=== PATIENT | female | born 1970 | race Caucasian/White ===

== ENCOUNTER 2022-11-26 09:00 | Outpatient (RCR) | payer OTHER, SELFPAY | END 2023-03-26 23:59 | disposition home or self-care (01) | PROVIDERS: PCP Family Medicine; Visit Provider Family Medicine | DX: M75.101 Unspecified rotator cuff tear or rupture of right shoulder, not specified as traumatic (principal); M19.011 Primary osteoarthritis, right shoulder; M75.41 Impingement syndrome of right shoulder; M25.511 Pain in right shoulder; M25.611 Stiffness of right shoulder, not elsewhere classified; R53.1 Weakness; Z51.89 Encounter for other specified aftercare | CPT/HCPCS: 97032; 97035; 97110; 97140; 97161; 97164 ==

== ENCOUNTER 2023-01-17 07:36 | Day surgery (SDC) | payer OTHER, SELFPAY ==
[2023-01-17] VITALS (27 sets, daily range): BP systolic 114–145; BP diastolic 66–96; PULSE 60–75; RESP 12–18; TEMP 36.1–36.7; O2SAT 92–100; BMI 27.8
[2023-01-17] MEDS: LACTATED RINGERS 1000 ML 1,000 ML 100 ML IV (07:55)
[2023-01-17 08:09] LABS: Ur HCG Qualitative* Negative (Negative)
--- NOTE | 2023-01-17 08:20 | W.PM.H&PU ---
History & Physical Update History & Physical Update H&P Reviewed and patient assessed: No changes noted
[2023-01-17] MEDS: SODIUM CHLORIDE 0.9 % (FLUSH) 10 ML SYRINGE IVF (08:44)
[2023-01-17] MEDS: fentaNYL 100 MCG/2 ML inj IVP (08:55)
[2023-01-17] MEDS: MIDAZOLAM HCL 1 MG/ML inj IVP (08:55)
--- NOTE | 2023-01-17 09:12 | SUR.PREOP ---
TIME?OUT:?0854 PT/RN/MDA?VERIFICATION?OF?SURGICAL?SITE,?PROCEDURE,?AND?CONSENT OBTAINED?PRIOR?TO?INVASIVE?PROCEDURE.
--- NOTE | 2023-01-17 09:29 | W.PM.NB ---
Nerve Block Nerve Block Time Seen by Provider: 08:55 Date Seen: 01/17/23 Type of block requested by surgeon for post-operative analgesia: interscalene Side: right Time out performed: Yes Verification of patient name: Yes Verification of date of : Yes Site marking: site marked Name of person performing procedure: Osman Isabela Continuous monitoring Was continuous monitoring of O2 sat, B/P, ditch inspector, recorded every 15 minutes?: Yes Procedure Checklist: sterile prep, needles and gloves Ultrasound guided. Images saved: Yes Medications given in 5ml increments after negative aspiration: Ropivicaine %: 0.5 mL: 25 Needle gauge: 21 Decadron (mg): 10 Precedex (mcg): 25 Patient tolerated procedure well: Yes Additional comments: Injected in 5mL increments after negative aspiration Block Charges Block Charge (with Pro Fee): Brachial Plexus Use of Ultrasound Machine for Block: Yes- US Guidance/pain block
[2023-01-17] MEDS: CEFAZOLIN 2 GM in 0.9 % SODIUM CHLORIDE Mini-bag 100 ML IVPB (09:36)
[2023-01-17] MEDS: EPINEPHrine 1 MG in SODIUM CHLORIDE IRRIG SOLUTION 3,000 ML 9003 MG IRRIGATION ×3 (09:57→10:33)
[2023-01-17] MEDS: EPINEPHrine 1 MG in SODIUM CHLORIDE IRRIG SOLUTION 3,000 ML 2000 MG IRRIGATION (10:50)
--- NOTE | 2023-01-17 10:51 | P.ORPRC_ITS ---
Procedure Note Date of procedure: 01/17/23 Procedure: PREOPERATIVE DIAGNOSES: 1. Right shoulder rotator cuff [id number] partial-thickness supraspinatus 2. Right shoulder AC joint arthrosis, primary, moderate-severe 2. Right shoulder subacromial impingement syndrome. POSTOPERATIVE DIAGNOSES: 1. Right shoulder rotator cuff tpsn-bdsm-krpua partial-thickness supraspinatus 2. Right shoulder AC joint arthrosis, primary, moderate-severe 2. Right shoulder subacromial impingement syndrome. NAME OF OPERATION: 1. Right shoulder arthroscopic rotator cuff bbnymf-nbhw-fznxj partial-thickness supraspinatus 2. Right shoulder arthroscopic distal clavicle excision 3. Right shoulder arthroscopic bursectomy, subacromial decompression/partial acromioplasty. SURGEON: Andrez Mejia MD HORSE RACING ANALYST: Jose Baptiste. Of note, a skilled assistant golf course superintendent was critical for this case to aide in patient positioning, suture manipulation, arm positioning, instrument positioning, and closure. ANESTHESIA: General plus preoperative supraclavicular block. EBL: 25 mL IMPLANTS: Arthrex 5.5 mm BioComposite SwiveLock suture anchor (x1); Arthrex 2.6 mm knotless FiberTak RC (x1) COMPLICATIONS: None evident INDICATIONS: The patient is a pleasant, 52-year-old female who has experienced right shoulder pain that has been increasing in recent time. Physical exam and imaging were consistent with a rotator cuff tear. Given their findings, as well as the weakness and pain, and inadequate response to nonoperative management, recommendation was made for surgery. FINDINGS: Exam under anesthesia revealed stable shoulder with excellent range of motion. The diagnostic arthroscopy revealed healthy chondral surfaces of the glenohumeral joint. The Subscapularis tendon was intact and with a healthy attachment. The long head of the biceps tendon was intact. The superior rotator cuff tendon was found to be torn and high-grade partial-thickness manner on the articular side. A blunt probe easily penetrated through this from the bursal side. The labrum was relatively healthy without significant tearing. No loose bodies were identified within the pouch or subscapularis recess. PROCEDURE: Following a thorough discussion of risks, benefits, and alternatives, consent was obtained and the right shoulder was marked. The patient was brought to the operating room and placed supine on the operating table. Induction of anesthesia was completed after preoperative supraclavicular block was administered in preop holding. Appropriate time out was performed identifying proper patient, site, and procedure. 2 g IV Ancef was administered within 1 hour of incision preoperatively. The right upper extremity was prepped and draped in the appropriate sterile fashion using ChloraPrep prep. This was after the patient was positioned in the beach chair with their head in neutral alignment and all bony prominences well padded. The shoulder was insufflated with 20mL of normal saline via an 18g spinal needle from a posterior approach. An 11 blade skin incision allowed a blunt trochar to be inserted and diagnostic arthroscopy to be performed with the findings as noted above. An anterior portal was established with an outside in technique. This allowed the probe to be inserted and confirm the diagnostic arthroscopic findings. The shaver was then inserted and allowed debridement of the deep surface of the supraspinatus. Following this, the upper border subscapularis was probed and found to be stable. Thereafter, the subacromial space was entered. Here, a complete bursectomy and partial acromioplasty/subacromial decompression was performed with a combination of radiofrequency ablator, the shaver, and a 5.5 mm bur. Additionally, distal clavicle excision was performed with the bur. 8 mm of distal clavicle was resected based on the with of our bur. Further inspection of the supraspinatus and infraspinatus rotator cuff was performed. This identified the tear as noted above. The margins of the tear were debrided, and the greater tuberosity was debrided with a combination of the apollo cautery, shaver, and bur on reverse setting. [After gentle decortication, a 2.6 mm FiberTak RC was placed for medial row anchor. After it was set, the sutures were passed with 4 tails passed independently. These were brought to a single lateral row 5.5 mm anchor. Excellent rotator cuff reapproximation to the greater tuberosity was achieved and visualized on both the articular side and bursal side. Prior to anchor route driver salesperson removal, the eyelet sutures were tugged on for each anchor and found that the anchor had excellent stability within the bone. The shoulder was placed through range of motion and found to be stable. The rotator cuff was re-probed and found to be stable. Instruments were removed. Excess fluid was drained, closure performed with 4-0 Monocryl and Steri-Strips. Dressings were applied. Sling was applied. The patient was awoken from anesthesia and transferred to the PACU in stable condition. A skilled assistant golf course superintendent was critical for this case to aid in patient positioning, limb positioning, skill to manipulate arthroscopic instruments and camera, suture management, patient safety, and closure. PLAN: 1. Elbow, forearm, wrist and digit range of motion as tolerated. 2. Encouraged ice. 3. Tramadol for pain as needed. 4. Sling at all times except for ROM and showering. 5. Follow up with PA visit in 1-2 weeks for wound check. Initiate physical therapy following that visit for passive range of motion. Initiate active assisted range of motion at 4-5 weeks. May do pendulums now.
--- NOTE | 2023-01-17 11:24 | W.ANESCHARGE ---
Anesthesia Charges Start Date/Time Anesthesia Start Date: 01/17/23 Anesthesia Start Time: 09:22 Stop Date/Time Anesthesia Stop Date: 01/17/23 Anesthesia Stop Time: 11:24
[2023-01-17] MEDS: HYDROmorphone 0.5 mg/0.5 ml inj IVP (11:49)
[2023-01-17] MEDS: fentaNYL 100 MCG/2 ML inj 50 MCG IVP (11:49)
[2023-01-17] MEDS: TRAMADOL HCL 50 MG TABLET PO (13:49)
--- NOTE | 2023-01-17 14:20 | SUR.PHASEII ---
Upon reassessment, pt complains of severe 9/10 anterior shoulder pain/ burning sensation and tenderness. Anesthesia notified. Plan to re administer nerve block. Pt agreeable to plan. TIME?OUT:1419 PT/RN/FELIZ?VERIFICATION?OF?SURGICAL?SITE,?PROCEDURE,?AND?CONSENT OBTAINED?PRIOR?TO?INVASIVE?PROCEDURE.
--- NOTE | 2023-01-17 14:51 | P.NB_ITS ---
Nerve Block Nerve Block Time Seen by Provider: 14:54 Date Seen: 01/17/23 Type of block requested by surgeon for post-operative analgesia: supraclavicular Side: right Time out performed: Yes Verification of patient name: Yes Verification of date of : Yes Site marking: site marked Name of person performing procedure: FARA Pham Continuous monitoring Was continuous monitoring of O2 sat, B/P, air sampling and monitoring, recorded every 15 minutes?: Yes Procedure Checklist: sterile prep, needles and gloves Ultrasound guided. Images saved: Yes Medications given in 5ml increments after negative aspiration: Ropivicaine %: 0.5 mL: 12 Needle gauge: 20 Patient tolerated procedure well: Yes Block Charges Block Charge (with Pro Fee): Brachial Plexus Use of Ultrasound Machine for Block: Yes- US Guidance/pain block
== END 2023-01-17 15:13 | disposition home or self-care (01) ==
PROVIDERS: PCP Family Medicine; Visit Provider Orthopaedic Surgery Sports Medicine
PROC: (CPT 29805; principal; 2023-01-17 09:00)
DX: M75.101 Unspecified rotator cuff tear or rupture of right shoulder, not specified as traumatic (principal); M19.011 Primary osteoarthritis, right shoulder; M75.41 Impingement syndrome of right shoulder; G89.18 Other acute postprocedural pain
CPT/HCPCS: 29827; 29826; 29824; 01630; 64415; 76942; 81025; A9270; C1713; J0171; J0665; J0690; J1100; J1170; J2250; J2405; J2704; J2795; J3010; J3490; J7120; L3670

== ENCOUNTER 2023-05-12 16:45 | Outpatient (RCR) | payer OTHER, SELFPAY | END 2023-09-09 23:59 | disposition home or self-care (01) | PROVIDERS: PCP Family Medicine; Visit Provider Physician Assistant Surgical | DX: Z98.890 Other specified postprocedural states (principal); Z51.89 Encounter for other specified aftercare | CPT/HCPCS: 97110; 97140; 97161 ==

== ENCOUNTER 2023-11-01 08:30 | Outpatient (RCR) | payer OTHER, SELFPAY | END 2024-02-29 23:59 | disposition home or self-care (01) | PROVIDERS: PCP Family Medicine; Visit Provider Orthopaedic Surgery | DX: M25.561 Pain in right knee (principal); R60.0 Localized edema; Z98.890 Other specified postprocedural states | CPT/HCPCS: 97110; 97112; 97140; 97162; 97165; X5282 ==

== ENCOUNTER 2024-03-26 18:05 | Outpatient (CLI) | payer OTHER, SELFPAY ==
--- NOTE | 2024-03-26 18:15 | MR_ITS ---
[address] [address] Phone:?[phone] Fax:?[phone] Referring Physician Information: Andrez Mejia M.D. [address] [facility] [address] Phone:?[phone] Fax:?[phone] Patient:Jaime Nelson D.O.B:?1970 Sex:?Female Phone:?[phone] [facility] MRN:?[id number] Exam Date:?03/26/2024 EXAM: MRI of the RIGHT KNEE, without contrast CLINICAL INFORMATION: Female, 53 years old, with right knee pain. INDICATION: Evaluate for meniscal tear. PRIOR SURGERY: None reported. PLAIN FILMS: Knee radiographs dated 03/15/2024. COMPARISONS: Right knee MRI dated 07/06/2023. TECHNICAL INFORMATION: Using a 1.5T MR scanner and a localizing surface coil: sagittals: PD, PDFS coronals: PD, T2FS axials: PD, PDFS SEDATION: None CONTRAST: None FINDINGS: Knee joint: Effusion: Small right knee effusion, with evidence of synovitis. Popliteal cyst: Small, unruptured popliteal (Gamble's) cyst. Loose bodies: None. Subcutaneous and extra-articular soft tissues: Unremarkable. Ligaments: ACL: Intact ACL anteromedial and posterolateral bundles, without sprain or tear. PCL: Intact PCL, without acute or chronic injury. MCL: Mild thickening of the proximal 3rd of the superficial MCL, without MCL tear. LCL: Intact LCL, without injury. Posterolateral corner: Mild popliteus tendinopathy, without tear. Biceps femoris, iliotibial band, popliteofibular ligament and lateral gastrocnemius are intact. Posteromedial corner: Mild semimembranosus tendinopathy, without tear. Pes anserine tendons and posterior oblique ligament are without injury, tendinopathy or bursitis. Extensor mechanism: Patellar tendon: Intact, without tendinopathy. Quadriceps tendon: Intact, without tendinopathy. Retinacula: Medial and lateral retinacula are intact. Fat pads: Unremarkable infrapatellar Hoffa's, quadriceps and prefemoral fat pads. Medial compartment: Medial meniscus: Full thickness radial tearing of the posterior horn/root of the medial meniscus measuring 1.2 cm (sagittal PDFS series 6 images 19-22). Meniscal extrusion measures 6 cm. No parameniscal cyst. Medial femoral condyle & tibial plateau: Broad-based grade III chondromalacia throughout the central, weightbearing aspect of the medial compartment, with mild marginal osteophytosis and reactive osseous changes (coronal STIR series 8 image 16 and sagittal PDFS series 6 image 23). Lateral compartment: Lateral meniscus: No articular surface, meniscosynovial junction or root tear. No displacement, extrusion or parameniscal cyst. Lateral femoral condyle: No chondromalacia or osteochondral abnormality. Lateral tibial plateau: No chondromalacia or osteochondral abnormality. Patellofemoral joint: Patella: Broad-based grade II/III chondromalacia of the medial facet and median ridge, with minimal marginal osteophytosis. Trochlea: Broad-based grade II chondromalacia of the medial facet and central sulcus, with minimal marginal osteophytosis. Proximal tibiofibular joint: Unremarkable, without evidence of ligament sprain injury, joint effusion or adjacent marrow edema. Bones: No stress/occult fractures or other marrow edema/pathology. IMPRESSION: 1. Full-thickness radial tear of the posterior horn/root medial meniscus measuring 1.2 cm, with 6 mm of meniscal extrusion. This has slightly progressed since prior study dated 07/06/2023. 2. Mild-moderate osteoarthritis of the medial compartment, which has progressed since prior study. 3. Mild osteoarthritis of the patellofemoral compartment, unchanged. 4. Small knee joint effusion with synovitis and a small, unruptured popliteal (Gamble's) cyst. 5. Mild popliteus and semimembranosus tendinopathy, without tear. 6. No acute cruciate or collateral ligament sprain/tear. 7. No lateral meniscal tear or osteochondral abnormality of the lateral meniscus. BC Electronically signed on 03/27/2024 10:26:00 AM by Arslan Cherry M.D.
== END 2024-03-26 18:06 | disposition home or self-care (01) ==
LOC: MRI 18:06
PROVIDERS: PCP Family Medicine; Visit Provider Orthopaedic Surgery Sports Medicine
DX: M25.561 Pain in right knee (principal); M17.11 Unilateral primary osteoarthritis, right knee; S83.241A Other tear of medial meniscus, current injury, right knee, initial encounter; M25.461 Effusion, right knee; M23.203 Derangement of unspecified medial meniscus due to old tear or injury, right knee
CPT/HCPCS: 73721

== ENCOUNTER 2024-07-18 06:32 | Day surgery (SDC) | payer OTHER, SELFPAY ==
[2024-07-18] VITALS (13 sets, daily range): BP systolic 104–134; BP diastolic 67–89; PULSE 57–81; RESP 13–16; TEMP 36.2–36.6; O2SAT 97–100; BMI 29.9
[2024-07-18] MEDS: LACTATED RINGERS 1000 ML 1,000 ML 100 ML IV (06:35)
[2024-07-18] MEDS: SODIUM CHLORIDE 0.9 % (FLUSH) 10 ML SYRINGE IVF (06:54)
--- NOTE | 2024-07-18 07:14 | W.PM.H&PU ---
History & Physical Update History & Physical Update H&P Reviewed and patient assessed: No changes noted
[2024-07-18] MEDS: CEFAZOLIN 2 GM in 0.9 % SODIUM CHLORIDE Mini-bag 100 ML IVPB (07:51)
--- NOTE | 2024-07-18 09:03 | PM.ORPRC ---
Procedure Note Date of procedure: 07/18/24 Procedure: PREOPERATIVE DIAGNOSIS: 1. Right knee medial meniscus root tear POSTOPERATIVE DIAGNOSIS: 1. Right knee medial meniscus root tear, subacute 2. 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 Right knee arthroscopic partial medial meniscus root repair 2. Right knee microfracture intercondylar notch and grade 4 medial femoral condyle] SURGEON: Andrez Mejia M.D. FRONT LOADER RESIDENTIAL DRIVER: Jemal MEDINA; . Of note, a skilled funeral director's assistant was critical for this case to aid in patient positioning, knee manipulation, skill to manipulate arthroscopic instruments and camera, instrument exchange, and closure. ANESTHESIA: Spinal EBL: 2 mL TOURNIQUET: 50 min at 300 torr IMPLANTS: Arthrex SutureLoc (x1) COMPLICATIONS: None evident INDICATIONS: The patient is a pleasant 53-year-old female who has experienced right knee pain particularly with any twisting or turning. Physical exam was concerning for medial meniscus tear, this was confirmed on MRI, but more specifically at the posterior root. The medial meniscus had otherwise extruded into the medial gutter. Attempted nonoperative management has been tried, and failed. Thus, surgery was recommended for stabilization of the medial meniscus posterior root. FINDINGS: Grade 3-4 chondromalacia medial femoral condyle far medial aspect measuring ~ 4x10mm. Generalized grade 2 chondromalacia through the remaining medial femoral and low trochlear groove. Intact/healthy lateral compartment articular cartilage. Lateral meniscus was intact. ACL and PCL were intact and robust. In the medial compartment, the medial meniscus was torn at the posterior root with slight posterior capsular fibers still connected. It was unstable and showed increased excursion when probed. The remaining part of meniscus was intact otherwise. DESCRIPTION OF PROCEDURE: After a thorough discussion of risks, benefits, and alternatives, the patient was brought to the operating room and placed upon the operating table. Induction of anesthesia was undertaken as previously noted. 1 g IV Ancef was administered within 1 hr of incision preoperatively. Appropriate time-out was performed identifying proper patient, site, and procedure. The right lower extremity was prepped and draped in the appropriate sterile fashion using ChloraPrep. The limb was exsanguinated and tourniquet inflated. Anterolateral and anteromedial portals were established with an 11 blade, and a diagnostic arthroscopy was performed. This identified the findings as noted above. Following the diagnostic arthroscopy, the meniscal root was debrided with a 4.0 mm torpedo shaver and arthroscopic rasp. This was to freshen the meniscal edge. This also allowed us to debride some the synovium on the medial wall within the notch. Minimal MCL lengthening was undertaken. A rip-stop suturetape suture was first passed and tied. Thereafter, a flip cutter guide for the posterior meniscus root was utilized and placed in the desired fashion at the medial meniscus posterior root attachment. The cannulated guidepin was drilled and confirmed to be in the desired location. The central stylus was removed, a nitinol wire passed, and the SutureLoc device shuttled appropriately. The SutureLoc device was engaged and had excellent purchase in the proximal tibia. Thereafter, the separate tails were passed just beyond the rip stop and shuttled appropriately. The 2 sutures were tensioned down to the desired location. Thereafter, the knee was cycled many times and the sutures were retensioned. Excellent reapproximation of the meniscus was achieved. Finally, the arthrex powerpick device was utilized for microfracturing of the intercondylar notch and the far medial grade 4 chondromalacia lesion. The shaver removed any remaining bone debride. Instruments were removed, excess fluid was drained, and closure performed with 2-0 Vicryl for subcutaneous closure of the tibial incision, and 4-0 Monocryl for subcuticular closure and portal closure. with Steri-Strips. Dressings were applied, the tourniquet deflated, and the patient was awoken from anesthesia and transferred to the PACU in stable condition. A skilled funeral director's assistant was critical for this case to aid in patient positioning, knee manipulation, skill to manipulate arthroscopic instruments and camera, instrument exchange, and closure. PLAN: 1. Toe-touch weightbear operative lower extremity. Crutch / walker ambulation assistance PRN. 2. Ice, acetominophen and/or ibuprofen, and Oxycodone for pain as needed. 3. Knee range of motion and quad sets/straight leg raise regularly 4. Follow up with PA visit in 1-2 weeks for a wound check.
--- NOTE | 2024-07-18 09:15 | P.ANES_ITS ---
Anesthesia Charges Start Date/Time Anesthesia Start Date: 07/18/24 Anesthesia Start Time: 07:41 Stop Date/Time Anesthesia Stop Date: 07/18/24 Anesthesia Stop Time: 09:15 Coding CPT Codes CPT Codes: ANESTH KNEE JOINT SURGERY - 59233 ([id number]) P2 - PATIENT W/MILD SYST DISEASE, QZ - EDUCATIONAL DIRECTOR SVC W/O GRAIN MANAGER BY
--- NOTE | 2024-07-18 09:15 | W.ANESCHARGE ---
Anesthesia Charges Start Date/Time Anesthesia Start Date: 07/18/24 Anesthesia Start Time: 07:41 Stop Date/Time Anesthesia Stop Date: 07/18/24 Anesthesia Stop Time: 09:15 Coding CPT Codes CPT Codes: ANESTH KNEE JOINT SURGERY - 71621 ([id number]) P2 - PATIENT W/MILD SYST DISEASE, QZ - SUPERINTENDENT STATIONS SVC W/O APPLICATIONS PROCESSOR BY
--- NOTE | 2024-07-18 09:17 | W.PM.NB ---
Nerve Block Nerve Block Time Seen by Provider: 09:05 Date Seen: 07/18/24 Type of block requested by surgeon for post-operative analgesia: geniculars Side: right Time out performed: Yes Verification of patient name: Yes Verification of date of : Yes Site marking: not applicable Name of person performing procedure: Damian Continuous monitoring Was continuous monitoring of O2 sat, B/P, customer engagement representative, recorded every 15 minutes?: Yes Procedure Checklist: needles and gloves Ultrasound guided. Images saved: No Medications given in 5ml increments after negative aspiration: Ropivicaine %: 0.5 mL: 12 Needle gauge: 25 Precedex (mcg): 25 Patient tolerated procedure well: Yes Block Charges Block Charge (with Pro Fee): Genicular Nerve Block Use of Ultrasound Machine for Block: No
== END 2024-07-18 11:10 | disposition home or self-care (01) ==
LOC: OR 06:34
PROVIDERS: PCP Family Medicine; Visit Provider Orthopaedic Surgery Sports Medicine
PROC: (CPT 29870; principal; 2024-07-18 07:45)
DX: S83.241A Other tear of medial meniscus, current injury, right knee, initial encounter (principal); M94.261 Chondromalacia, right knee; G89.18 Other acute postprocedural pain
CPT/HCPCS: 29882; 29879; 01400; 64454; 97161; C1713; J0690; J1100; J2250; J2405; J2704; J2795; J3010; J7120

== ENCOUNTER 2025-02-26 20:25 | Outpatient (CLI) | payer OTHER, SELFPAY | END 2025-02-26 20:26 | disposition home or self-care (01) | LOC: SLEEP 20:25 | PROVIDERS: PCP Family Medicine; Visit Provider Internal Medicine | DX: G47.33 Obstructive sleep apnea (adult) (pediatric) (principal) | CPT/HCPCS: 95810 ==